=== PATIENT | female | born 1975 | race Two or more races ===

== ENCOUNTER 2022-10-24 08:15 | Inpatient (IN) | payer OTHER ==
[~2022-10-24] VITALS: Ht 170.2 cm; Wt 88.0 kg
[2022-10-24] MEDS ORDERED: PROPRANOLOL HCL10 MG PO (10:08)
== END 2022-11-01 11:51 | disposition home or self-care (01) | DRG 743 ==
LOC: OB/GYN 10-29 08:15 → O/R 10-29 09:06 → OB/GYN 10-29 11:00
PROVIDERS: ADMIT Obstetrics & Gynecology; ATTEND Obstetrics & Gynecology
PROC: 0UT70ZZ Resection of Bilateral Fallopian Tubes, Open Approach (ICD-10-PCS; 2022-10-29)
PROC: 0UT90ZZ Resection of Uterus, Open Approach (ICD-10-PCS; principal; 2022-10-29 11:00)
DX: D25.1 Intramural leiomyoma of uterus (principal); D25.2 Subserosal leiomyoma of uterus; N72 Inflammatory disease of cervix uteri; Z20.822 Contact with and (suspected) exposure to COVID-19